=== PATIENT | male | born 1950 | race Caucasian/White ===

== ENCOUNTER → 2018-09-10 | Outpatient (CLI) | payer MEDICARE | END | disposition home or self-care (01) | LOC: PCVCCLINIC 13:00 | PROVIDERS: ATTEND Internal Medicine | DX: I25.10 Atherosclerotic heart disease of native coronary artery without angina pectoris (principal); E78.5 Hyperlipidemia, unspecified | CPT/HCPCS: 93005; G0463 ==

== ENCOUNTER → 2018-12-08 | Outpatient (CLI) | payer MEDICARE ==
--- NOTE | 2018-12-08 10:19 | PCVCIMAG ---
APPROVED REPORT Study performed: 12/08/2018 09:35:35 EXAM: Comprehensive 2D, Doppler, and color-flow Echocardiogram Patient Location: Echo lab Status: routine BSA: 1.86 HR: 59 bpm Rhythm: NSR Other Information Study Quality: Good Risk Factors: Cardiac Risk Factors: Hyperlipidemia Indications CAD Stent 2D Dimensions IVSd: 15.77 (7-11mm)LVOT Diam: 22.59 (18-24mm) LVDd: 40.85 mm PWd: 10.71 (7-11mm)Ascending Ao: 37.74 (22-36mm) LVDs: 29.39 (25-40mm) Left Atrium: 32.16 (27-40mm) Aortic Root: 32.38 mm LV Single Plane 4CH: 72.60 % LV Single Plane 2CH: 69.45 % Biplane EF: 71.3 % Volumes Left Atrial Volume (Systole) Single Plane 4CH: 42.36 mLSingle Plane 2CH: 50.32 mL LA ESV Index: 25.00 mL/m2 Aortic Valve AoV Peak Golden.: 1.21 m/s AO Peak Gr.: 5.90 mmHgLVOT Max P.27 mmHg LVOT Max V: 1.03 m/s AUGUST Vmax: 3.41 cm2 Mitral Valve E/A Ratio: 1.1 MV Decel. Time: 245.08 ms MV E Max Golden.: 0.76 m/s MV A Golden.: 0.69 m/s IVRT: 117.65 ms TDI E/Lateral E': 9.50E/Medial E': 9.50 Medial E' Golden.: 0.08 m/s Lateral E' Golden.: 0.08 m/s Pulmonary Valve PV Peak Gr.: 2.12 mmHg Pulmonary Vein P Vein S: 0.43 m/sP Vein A: 0.39 m/s P Vein D: 0.37 m/sP Vein A Dur.: 93.4 msec P Vein S/D Ratio: 1.16 Left Ventricle The left ventricle is normal size. There is normal LV segmental wall motion. There is normal left ventricular wall thickness. Left ventricular systolic function is normal. The left ventricular ejection fraction is within the normal range. LVEF is 55-60%. Mild diastolic dysfunction is present (impaired relaxation pattern). Right Ventricle The right ventricle is normal size. The right ventricular systolic function is normal. Atria The left atrium size is normal. The right atrium size is normal. Aortic Valve The aortic valve is normal in structure. No aortic regurgitation is present. There is no aortic valvular stenosis. Mitral Valve The mitral valve is normal in structure. Trace mitral regurgitation. No evidence of mitral valve stenosis. Tricuspid Valve The tricuspid valve is normal in structure. There is no tricuspid valve regurgitation noted. Pulmonic Valve The pulmonary valve is normal in structure. There is no pulmonic valvular regurgitation. Great Vessels The aortic root is normal in size. IVC is normal in size and collapses >50% with inspiration. Pericardium There is no pericardial effusion. <Conclusion> Left ventricular systolic function is normal. There is normal LV segmental wall motion. LVEF is 55-60%. Mild diastolic dysfunction The aortic valve is normal in structure. No aortic regurgitation or stenosis The mitral valve is normal in structure. Trace mitral regurgitation. Pulmonary artery systolic pressure could not be reliably ascertained. There is no pericardial effusion.
== END | disposition home or self-care (01) ==
LOC: PCVCIMAG 09:37
PROVIDERS: ATTEND Internal Medicine
DX: I25.10 Atherosclerotic heart disease of native coronary artery without angina pectoris (principal); E78.5 Hyperlipidemia, unspecified; Z79.82 Long term (current) use of aspirin
CPT/HCPCS: 93005; 93306; G0463